=== PATIENT | male | born 1960 ===

== ENCOUNTER 2019-05-23 14:24 | Emergency (ER) | payer OTHER ==
[~2019-05-23] VITALS: Ht 167.6 cm; Wt 81.6 kg
[2019-05-23] MEDS ORDERED: PERCOCET 5-3251 EACH PO (16:25)
== END 2019-05-23 16:54 | disposition home or self-care (01) ==
LOC: ER 14:24
DX: S40.011A Contusion of right shoulder, initial encounter (principal); M25.511 Pain in right shoulder; W18.39XA Other fall on same level, initial encounter; Y93.89 Activity, other specified; Y92.018 Other place in single-family (private) house as the place of occurrence of the external cause; Y99.8 Other external cause status; Z96.611 Presence of right artificial shoulder joint